=== PATIENT | female | born 1960 | race American Indian/Alaskan Native ===

== ENCOUNTER 2017-01-22 20:20 | Emergency (ER) | payer OTHER ==
[2017-01-22] MEDS ORDERED: MOTRIN PO ONE (21:01)
[2017-01-22] MEDS ORDERED: FLEXERIL PO ONE (23:27)
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
[2017-01-23 03:57] VITALS: BP 110/75
== END 2017-01-23 01:45 | disposition home or self-care (01) ==
LOC: ED 20:20
DX: S16.1XXA Strain of muscle, fascia and tendon at neck level, initial encounter (principal); J45.909 Unspecified asthma, uncomplicated; Z90.710 Acquired absence of both cervix and uterus; V49.49XA Driver injured in collision with other motor vehicles in traffic accident, initial encounter; Y93.89 Activity, other specified; Y99.8 Other external cause status; Y92.89 Other specified places as the place of occurrence of the external cause
CPT/HCPCS: 72125